=== PATIENT | female | born 1990 | race African-American/Black ===

== ENCOUNTER 2024-10-01 09:19 | Emergency (ER) | payer MEDICAID, SELFPAY ==
[2024-10-01 09:29] VITALS: BP 109/59; PULSE 107; RESP 16; TEMP 36.9; O2SAT 99; BMI 30.8
[2024-10-01 10:08] LABS: IDNOW Serial# 55D5AD1C; Strep A Nucleic Acid Positive (Negative)
[2024-10-01 11:10] LABS: Influenza A PCR NEGATIVE (Negative); Influenza B PCR NEGATIVE (Negative); Resp Syncy Virus RNA Qual PCR NEGATIVE (Negative); SARS COV2 PCR INHOUSE NEGATIVE (Negative)
--- NOTE | 2024-10-01 12:17 | ED.GENADULT ---
HPI - General Adult General Chief complaint: Fever Stated complaint: sore throat fever Time Seen by Provider: 10/01/24 10:11 Source: patient, RN notes reviewed and old records reviewed Mode of arrival: ambulatory History of Present Illness ED Provider: Sheba Avery PA-C [facility] narrative: 34-year-old female with no significant past medical history presenting to the ED complaining of fever, chills, sore throat, myalgias since yesterday. Admits child at home with URI symptoms as well. Denies difficulty or inability to swallow, cough, travel, CP/SOB Related Data Previous Rx's ?Medication ?Instructions ?Recorded acetaminophen 500 mg tablet 500 mg PO Q6H PRN fever or pain 10/01/24 (Tylenol Extra Strength) #14 tabs amoxicillin 875 mg-potassium 1 tab PO BID 7 days #14 tabs 10/01/24 clavulanate 125 mg tablet ibuprofen 400 mg tablet 400 mg PO Q6H PRN fever or pain 10/01/24 #14 tabs Allergies Allergy/AdvReac Type Severity Reaction Status Date / Time No Known Allergies Allergy Verified 10/01/24 09:34 Review of Systems Review of Systems: Yes all other systems are reviewed and are negative Constitutional: Constitutional: Reports as per [facility] Past Medical History Attestation statement: The following information was validated with the patient. Source: old records reviewed Social History Social History Advance Directives: No Advance Directives Information Provided: No Physical Exam ED Vital Signs: Vital Signs - 24 hr 10/01/24 09:29 Temperature 98.5 F Pulse Rate 107 H Respiratory Rate 16 Blood Pressure 109/59 L Pulse Oximetry 99 Oxygen Delivery Method Room Air BMI result Body Mass Index 30.8 Const General: cooperative, healthy appearing and no acute distress Orientation/consciousness: patient oriented x3 Limitations: no limitations HENMT Head: Yes normal to inspection and Yes atraumatic Ears: hearing grossly normal bilaterally, external ears normal, TM's normal bilaterally and mastoids normal General nose exam: Normal external nose present Face and sinus: Yes normal facial exam Throat: Yes uvula midline, Yes abnormal tonsil (+ bilateral tonsillar erythema, swelling and exudates), No peritonsillar mass, Yes posterior oropharynx abnormal ( erythematous), No uvula laterally displaced and No uvular edema Eyes General: appearance normal, both eyes and all related structures EOM: EOMs intact bilaterally Neck Neck: Yes normal visual inspection and Yes no meningeal signs Resp Effort & Inspection: normal respiratory effort and no respiratory distress Cardio Rate: regular rate Skin Rashes: no rashes Wounds: no wounds Neuro General: patient oriented x3, tone normal and no meningeal signs Cranial nerves: Yes CN's II-XII intact bilaterally Gait exam (Neuro): Normal gait present Extrem General: Yes normal to inspection Course Course Course Narrative: - rapid strep positive - COVID/flu/ RSV negative Results discussed with patient including worrisome signs and symptoms and strict return precautions, and when to return to the emergency department. They verbalized understanding and feel safe for discharge at this time. Medications Administered Discontinued Medications Generic Name Dose Route Start Last Admin Trade Name Freq PRN Reason Stop Dose Admin Amoxicillin/Clavulanate Potassium 875 mg 10/01/24 11:55 10/01/24 12:18 Amoxicillin/Potassium Clav 875 Mg Tablet PO 10/01/24 11:56 875 mg ONCE ONE Administration Ibuprofen 800 mg 10/01/24 11:55 10/01/24 12:18 Ibuprofen 800 Mg Tablet PO 10/01/24 11:56 800 mg ONCE ONE Administration Medical Decision Making Medical Decision Making [facility] Narrative: 34-year-old female with no significant past medical history presenting to the ED complaining of fever, chills, sore throat, myalgias since yesterday. on exam mildly tachycardic, NAD, nontoxic appearing, physical exam as noted above with bilateral tonsillar erythema, swelling and exudates. Uvula midline, talking in complete sentences, no drooling or respiratory distress. Concern for strep pharyngitis vs URI. 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 No evidence of acute otitis Plan: Viral testing, rapid strep Please refer to course for remaining clinical decision making, interpretation of labs/imaging results, and discussions with consultants and/or family members. Differential Diagnosis Differential Diagnoses: The differential diagnosis associated with the presentation includes As above Lab Data [facility] Lab Attestation statement: I reviewed the patient's lab results. Labs: Lab Results 10/01/24 Range/Units 09:41 Influenza Type A (PCR) NEGATIVE (Negative) Influenza Type B (PCR) NEGATIVE (Negative) RSV RNA Qual (PCR) NEGATIVE (Negative) SARS-CoV-2 RNA (RT-PCR) NEGATIVE (Negative) S. pyogenes GrpA STEFANO Positive A (Negative) External Record Review External record reviewed: Inpatient record, Office record, Outpatient record, Prior outpatient labs, Prior outpatient radiology, Primary care record and Outside ED record Tests considered The following testing was considered but not selected: As above Prescription Management I considered prescription management with: Pain Medication and Antibiotic Chronic Conditions Patient?s care impacted by: Other Social Determinants Patient?s care significantly limited by Social Determinants of Health including: Other Social Determinant of Health Discharge Plan Discharge Clinical Impression: Strep throat Patient Disposition: Home, Self-Care Instructions: Strep Throat (DC) Additional Instructions: you have strep throat Augmentin as an antibiotic please take as prescribed In addition take Tylenol and ibuprofen at home for pain and swelling You are contagious until on antibiotics for 24 hours, avoid sharing food, utensils, drinks If symptoms persist or worsen, pain is unbearable, you have difficulty or inability to swallow return to the ED Prescriptions: New acetaminophen [Tylenol Extra Strength] 500 mg tablet 500 mg PO Q6H PRN (Reason: fever or pain) Qty: 14 0RF ibuprofen 400 mg tablet 400 mg PO Q6H PRN (Reason: fever or pain) Qty: 14 0RF amoxicillin-pot clavulanate 875-125 mg tablet 1 tab PO BID 7 Days Qty: 14 0RF Referrals: [facility] Primary Care, Jordon [Provider Group] [facility] Primary Care, Janna [Provider Group] Physician,None [Primary Care Provider] - 1 week Stand Alone Forms: Work/School Release Print Language: Lavern Montesinos
[2024-10-01] MEDS: Ibuprofen 800 MG TABLET PO (12:18)
[2024-10-01] MEDS: Amoxicillin/Potassium Clav 875 MG TABLET PO (12:18)
[2024-10-01 12:26] VITALS: BP 125/58; PULSE 100; RESP 16; TEMP 37.2; O2SAT 99
== END 2024-10-01 12:26 | disposition home or self-care (01) ==
PROVIDERS: Emergency Provider Emergency Medicine
DX: J02.0 Streptococcal pharyngitis (principal); Z03.818 Encounter for observation for suspected exposure to other biological agents ruled out
CPT/HCPCS: 0241U; 87651; 99283

== ENCOUNTER 2025-04-24 15:55 | Emergency (ER) | payer OTHER, MEDICAID, SELFPAY ==
[2025-04-24 16:11] VITALS: BP 118/56; PULSE 98; RESP 18; TEMP 36.3; O2SAT 98; BMI 31.2
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
--- OUTSIDE RECORDS SUMMARY | 2025-04-24 16:35 | XMS_ITS | Clinical Summary ---
Author Organization [employer] Address [address] [place] [address] Care Team Providers Care Shipping Receiving Clerk Name Role Phone Kayleen Henao RAMYA Primary Care Provider [phone] Allergies No known active allergies Medications acetaminophen (Tylenol 8 Hour) 650 MG ER tabletIndication s:Dental caries Take 1 tablet (650 mg) by mouth every 8 (eight) hours if needed for mild pain. Do not crush, chew, or split. 30 tablet 10/27/2024 Active ibuprofen 600 MG tabletIndication s:Alveolitis of maxilla Take 1 tablet (600 mg) by mouth 3 times daily. 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 Retained tooth root 12/14/2024 Dental caries 10/27/2024 Pain, dental 10/27/2024 Family History Medical History Relation Name Comments No Known Problems Daughter Hypertension Maternal Grandmother No Known Problems Son Cancer Neg Hx Relation Name Status Comments Daughter Alive Maternal Grandmother Son Alive Social History Tobacco Use Types Packs/Day Years Used Date Smoking Tobacco: Never Passive Smoke Exposure: Never Smokeless Tobacco: Never Tobacco Cessation:Counseling Given: No Alcohol Use Standard Drinks/Week Comments Never 0 (1 standard drink = 0.6 oz pur e alcohol) Education Answer Date Recorded What is the highest level of school you have completed or the highest degree you have received? Associate degree: occupational, technical, or vocational program 11/26/2023 Comments No Sex and Gender Information Value Date Recorded Sex Assigned at Female 11/01/2023 9:14 AM EDT Legal Sex Female 6:46 PM EST Gender Identity Female 11/01/2023 9:14 AM EDT Sexual Orientation Straight 11/01/2023 9: 14 AM EDT Occupation Industry Job Start Date Job End Date Unemployed Not on file Not on file Not on file Last Filed Vital Signs Vital Sign Reading Time Taken Comments Blood Pressure 118/68 12/14/2024 10:07 AM EDT Pulse 62 12/14/2024 10:07 AM EDT Temperature 36.3 C (97.3 F) 11/26/2023 1:07 PM EDT Respiratory Rate 16 11/26/2023 1:07 PM EDT Oxygen Saturation 97% 11/26/2023 1:07 PM EDT Inhaled Oxygen Concentration - - Weight 83 kg (183 lb) 11/26/2023 1:07 PM EDT Height 162 cm (5' 3.78 ) 11/26/2023 1:07 PM EDT Body Mass Index 31.63 11/26/2023 1:07 PM EDT Plan of Treatment Upcoming Encounters Date Type Department Care Team (Late st Contact Info) Description 05/20/2025 8:00 AM EST Office Visit [facility] [address] [place] [address] [facility] [place] Health Maintenance Due Date Last Done Comments Dental Oral Exam 1988 Dental Prophylaxis 1988 Dental X-Ray: Bitewings 1988 Dental X-Ray: Full Mouth 1988 Depression Screening 1988 SDOH Screening 1988 Disability Screening 1988 Alcohol/Substance Use Screening 2000 Family Planning (PISQ) 2003 HPV Vaccines (1 - 3-dose series) 2003 DTaP/Tdap/Td Vaccines (1 - Tdap) 2007 Hepatitis B Vaccines (1 of 3 - 19+ 3-dose series) 2007 COVID-19 Vaccine (1 - 2023-2 5 season) 2025 Influenza Vaccine (#1) 2025 Tobacco Screening 12/21/2025 12/21/2024 Cervical Cancer Screening 11/25/2028 HPV/Cotest 11/25/2028 Pap Smear 11/25/2028 11/26/2023 Zoster Vaccines (1 of 2) 2038 RSV Patients and Pa tients Aged 60 years or older (1 - 1-dose 75+ series) 2063 HIV Screening Completed 11/06/2023 Hepatitis C Screening Completed 11/06/2023 HIB Vaccines Aged Out No longer eligi ble based on patient's age to complete this topic Hepatitis A Vaccines Aged Out No long er eligible based on patient's age to complete this topic IPV Vaccines Aged Out No longer eligi ble based on patient's age to complete this topic Meningococcal B Vaccine Aged Out No l onger eligible based on patient's age to complete this topic Meningococcal Vaccine Aged Out No maria l nury eligible based on patient's age to complete this topic Pneumococcal Vaccine: Pediat rics (0 to 5 Years) and At-Risk Patients (6 to 49) Years Aged Out No longer eligi ble based on patient's age to complete this topic RSV under 20 months Aged Out No longe r eligible based on patient's age to complete this topic Rotavirus Vaccines Aged Out No longer eligible based on patient's age to complete this topic Procedures Procedure Name Priority Date/Time Associated Diagnosis Comments IMAGE-GUIDED PAP W/AGE BASED SCR,W/CT/NG/TRICH Routine 11/26/2023 12:00 AM EDT Encounter for routine gynecological examination with Papanicolaou smear of cervix HEPATITIS C AB W/REFL TO HCV RNA, QN, PCR Routine 11/06/2023 2:07 PM EDT Routine screening for STI (sexually transmitted infection) HIV 1/2 ANTIGEN/ANTIBODY, FOURTH GENERATION W/RFL Routine 11/06/2023 2:07 PM EDT Routine screening for STI (sexually transmitted infection) from Last 3 Months or Most Recently Relevant to Health Maintenance Results * Image-Guided Pap with Age-Based Screening??with CT/NG,??Trichomonas (11/26/2023 12:00 AM EDT) Comment [facility] Comment: This order for age-based cervical cancer and STI screening follows ACOG guidelines(PB 168, 140, ILV783). See individual assays for performing site location. Clinical Information: [facility] Comment: THINPREP TIS PAP AND HPV mRNA E6/E7 WITH REFLEX TO HPV 16,18/45 Lab: [facility] CLINICAL INFORMATION: Postmenopausal LMP: [id number] prev. Pap: NONE GIVEN prev. Bx: NONE GIVEN SOURCE: Cervix STATEMENT OF ADEQUACY: Satisfactory for evaluation. Endocervical/transformation zone component present. INTERPRETATION/RESULT: Cytology Results: Negative for intraepithelial lesion or malignancy. COMMENT: This Pap test has been evaluated with computer assisted technology. FELT TIPPING MACHINE TENDER: CAROLINE FORD(ASCP) CT screening location: [place] [address] For questions contact Anatomic Pathology Client Services at [phone] EXPLANATORY NOTE: The Pap is a screening test for cervical cancer. It is not a diagnostic test and is subject to false negative and false positive results. It is most reliable when a satisfactory sample, regularly obtained, is submitted with relevant clinical findings and history, and when the Pap result is evaluated along with historic and current clinical information. Lab: [facility] HPV mRNA E6/E7 REFLEX HPV 16, 18/45 HPV mRNA E6/E7 Not Detected Reference Range: Not Detected Methodology: Caramel Maker-Mediated Amplification This assay detects E6/E7 viral messenger RNA (mRNA) from 14 high-risk HPV types (16,18,31,33,35,39,45,51,52,56,58,59,66,68). Cervical sources are required for HPV testing. If a vaginal source from a patient who has had a total hysterectomy with removal of cervix was submitted, please contact the testing laboratory for alternative testing options. For additional information, please refer to http://education.Iron.io/faq/ONQ881j2 (This link if provided for information/ educational purposes only.) THINPREP TIS PAP AND HPV mRNA E6/E7 WITH REFLEX TO HPV 16,18/45 PERFORMING SITE: [facility] [employer] [address] [address] Boring Mill Set Up Operator: NOLBERTO ROSE MD, CLIA: [id number] Chlamydia trachomatis RNA, TMA, Urogenital NOT DETECTED NOT DETECTED [facility] [place] [facility] Neisseria gonorrhoeae RNA, TMA, Urogenital NOT DETECTED NOT DETECTED [facility] [place] [facility] Comment [facility] Comment: The analytical performance characteristics of this assay, when used to test SurePath(TM) specimens have been determined by [facility]. The modifications have not been cleared or approved by the FDA. This assay has been validated pursuant to the CLIA regulations and is used for clinical purposes. For additional information, please refer to https://[employer].Iron.io/faq/LRT559 (This link is being provided for information/ educational purposes only.) Trichomonas vaginalis, QL, TMA, PAP Vial NOT DETECTED NOT DETECTED [facility] [place] [facility] Comment: The analytical performance characteristics of this assay have been determined by [facility]. The modifications have not been cleared or approved by the FDA. This assay has been validated pursuant to the CLIA regulations and is used for clinical purposes. For additional information, please refer to http://[employer].Iron.io/ faq/Trichomonastma (This link is being provided for information/ educational purposes only.) Pap Vial Vaginal structure / Unknown 11/26/2023 11/27/2023 5:46 AM EDT Carol Frankel NP LAB CYTOLOGY ORDERABLES Final Result [facility] [address], [place] [address] [facility] [address] [place] [address] * Hepatitis C Antibody with Reflex to HCV, RNA, Quantitative, Real-Time PCR (11/06/2023 2:07 PM EDT) Hepatitis C Antibody NON-REACT GABRIELA NON-REACT GABRIELA [facility] [place] [facility] Comment: HCV antibody was non-reactive. There is no laboratory evidence of HCV infection. In most cases, no further action is required. However, if recent HCV exposure is suspected, a test for HCV RNA (test code 37047) is suggested. For additional information please refer to http://[employer].Iron.io/faq/PCN75r7 (This link is being provided for informational/ educational purposes only.) Blood Venous blood specimen / Unknown 11/06/2023 2:07 PM EDT 11/07/2023 6:53 AM EDT Narrative [facility] - 11/08/2023 10:13 PM EDT FASTING:UNKNOWN FASTING: UNKNOWN [facility] Juliano NP LAB BLOOD ORDERABLES Final Resu lt [facility] [address] [facility] [facility], [place] [address] [facility] [place] [facility] [address] [place] [address] * HIV-1/2 Antigen and Antibodies, Fourth Generation, with Reflexes (11/06/2023 2:07 PM EDT) Pathologist [facility] [place] HIV Antigen/Antibody, 4th Generation NON-REAC TIVE NON-REAC TIVE [facility] [place] [facility] Comment: HIV-1 antigen and HIV-1/HIV-2 antibodies were not detected. There is no laboratory evidence of HIV infection. PLEASE NOTE: This information has been disclosed to you from records whose confidentiality may be protected by state law. If your state requires such protection, then the state law prohibits you from making any further disclosure of the information without the specific written consent of the person to whom it pertains, or as otherwise permitted by law. A general authorization for the release of medical or other information is NOT sufficient for this purpose. For additional information please refer to http://[employer].Networked Insights.[employer] (Proprietary)/faq/ALR957 (This link is being provided for informational/ educational purposes only.) The performance of this assay has not been clinically validated in patients less than 2 years old. Blood Venous blood specimen / Unknown 11/06/2023 2:07 PM EDT 11/07/2023 6:53 AM EDT Narrative [facility] - 11/08/2023 10:13 PM EDT FASTING:UNKNOWN FASTING: UNKNOWN [facility] LAB BLOOD ORDERABLES Final Resu lt [facility] [address] [facility] [facility], [place] [address] [facility] [address] [place] [address] from Last 3 Months or Most Recently Relevant to Health Maintenance Insurance [facility] C3 DENTAL-[facility] MEDICAID STAND ADULT Care Teams Shipping Receiving Clerk Relationship Specialty Start Date End Date Kayleen Henao NP [address] [place] [id number] PCP - General Family Medicine 10/01/23
[2025-04-24 16:39] VITALS: BP 118/56; PULSE 98; RESP 18; TEMP 36.3; O2SAT 98
== END 2025-04-24 16:39 | disposition home or self-care (01) ==
PROVIDERS: Emergency Provider Emergency Medicine Emergency Medical Services
DX: S39.012A Strain of muscle, fascia and tendon of lower back, initial encounter (principal); S29.012A Strain of muscle and tendon of back wall of thorax, initial encounter; V89.2XXA Person injured in unspecified motor-vehicle accident, traffic, initial encounter; Y93.9 Activity, unspecified; Y92.410 Unspecified street and highway as the place of occurrence of the external cause; Y99.9 Unspecified external cause status
CPT/HCPCS: 99282; 99283